=== PATIENT | male | born 1950 | race Caucasian/White ===

== ENCOUNTER 2017-04-26 13:20 | Inpatient (IN) | payer OTHER ==
[~2017-04-26] VITALS: Ht 167.6 cm; Wt 68.9 kg
[~2017-04-26 13:20] MED LIST: ATENOLOL50 MG PO; HYDRALAZINE HYD10 M1 PO; LEVOTHYROXINE0.05 M2 PO; NIFEDIPINE60 MG PO; PHOS PO; SODIUM BICARBO650 MG PO; ZES10 PO
[2017-04-26] MEDS ORDERED: PRA40 PO (13:36)
[2017-04-26 14:04] LABS: BASOPHIL % 0.4 % (0-2); PLATELET COUNT 224 x10^3mcL (130-400)
[2017-04-26 14:05] LABS: RED CELL DISTRIBUTION WIDTH 14.8 % (11.5-14.5)
[2017-04-26 14:27] LABS: FREE T4 1.13 ng/dL (0.76-1.46); FREE THYROXINE INDEX 3.4 ug/dL (1.4-4.5); T4(THYROXINE) 9.5 ug/dL (4.7-13.3)
[2017-04-26 14:35] LABS: ALBUMIN 3.6 g/dL (3.4-5.0); BILIRUBIN TOTAL 0.63 mg/dL (0.20-1.00); CALCIUM 9.3 mg/dL (8.5-10.1); CARBON DIOXIDE 22.9 mmol/L (21-32); CHOLESTEROL/HDL RATIO 2.9; TOTAL PROTEIN, SERUM 6.8 g/dL (6.4-8.2)
[2017-04-26 14:45] LABS: CREATININE SERUM 11.8 mg/dL (0.7-1.3); POTASSIUM SERUM 6.9 mmol/L (3.5-5.1)
[2017-04-26 14:51] LABS: T3 TOTAL 0.79 ng/mL
[2017-04-26 16:01] VITALS: BP 175/82
[2017-04-26 17:11] LABS: PHOSPHOROUS 4.6 mg/dL (2.5-4.9)
[2017-04-26 19:25] VITALS: BP 165/87
[2017-04-26 21:56] VITALS: BP 148/81
[2017-04-26 22:00] VITALS: BP 165/87
[2017-04-26 22:30] VITALS: BP 127/77
[2017-04-26 22:57] VITALS: BP 154/78
[2017-04-27 05:52] VITALS: BP 143/73
[2017-04-27 07:04] LABS: BASOPHIL % 0.7 % (0-2); PLATELET COUNT 209 x10^3mcL (130-400)
[2017-04-27 07:05] LABS: RED CELL DISTRIBUTION WIDTH 14.6 % (11.5-14.5)
[2017-04-27 07:13] LABS: CALCIUM 8.7 mg/dL (8.5-10.1); CARBON DIOXIDE 33.2 mmol/L (21-32); MAGNESIUM 2.1 mg/dL (1.8-2.4); PHOSPHOROUS 5.6 mg/dL (2.5-4.9); POTASSIUM SERUM 4.6 mmol/L (3.5-5.1)
[2017-04-27 07:26] VITALS: BP 136/67
[2017-04-27 07:28] LABS: CREATININE SERUM 7.3 mg/dL (0.7-1.3)
[2017-04-27 13:25] VITALS: BP 124/82
[2017-04-27 17:46] LABS: UA SPECIFIC GRAVITY 1.015 (1.005-1.035); microscopic required? YES; urine erythrocyte 1+ (NEGATIVE)
[2017-04-27 18:16] LABS: AMPHETAMINE QUAL UR NONE DETECTED (NEG <=1000)
[2017-04-27 18:30] VITALS: BP 157/79
[2017-04-27 20:45] VITALS: BP 149/82
[2017-04-27 21:53] VITALS: BP 134/69
[2017-04-28 00:47] VITALS: BP 117/63
[2017-04-28 05:37] VITALS: BP 134/64
[2017-04-28 06:21] LABS: PLATELET COUNT 209 x10^3mcL (130-400); RED CELL DISTRIBUTION WIDTH 14.5 % (11.5-14.5)
[2017-04-28 06:33] LABS: CALCIUM 8.8 mg/dL (8.5-10.1); CARBON DIOXIDE 29.4 mmol/L (21-32); PHOSPHOROUS 6.2 mg/dL (2.5-4.9); POTASSIUM SERUM 4.3 mmol/L (3.5-5.1)
[2017-04-28 06:55] LABS: CREATININE SERUM 6.5 mg/dL (0.7-1.3)
[2017-04-28 10:25] VITALS: BP 133/68
[2017-04-28] MEDS ORDERED: MECLIZINE HYDRO25 M1 PO (11:20)
[2017-04-28] MEDS ORDERED: HYDRALAZINE HY100 MG (11:28)
[2017-04-28 11:30] VITALS: BP 133/68
== END 2017-04-28 13:50 | disposition home or self-care (01) | DRG 70 ==
LOC: ED 13:20 → DU 14:57
PROVIDERS: Family Medicine; Internal Medicine Nephrology; Specialist; ADMIT Family Medicine
DX: G93.41 Metabolic encephalopathy (principal); N18.6 End stage renal disease; N17.0 Acute kidney failure with tubular necrosis; I50.43 Acute on chronic combined systolic (congestive) and diastolic (congestive) heart failure; I13.2 Hypertensive heart and chronic kidney disease with heart failure and with stage 5 chronic kidney disease, or end stage renal disease; E78.5 Hyperlipidemia, unspecified; E87.5 Hyperkalemia; E83.41 Hypermagnesemia; D53.9 Nutritional anemia, unspecified; E03.9 Hypothyroidism, unspecified; E83.39 Other disorders of phosphorus metabolism; Z99.2 Dependence on renal dialysis; Z68.24 Body mass index [BMI] 24.0-24.9, adult; Z87.891 Personal history of nicotine dependence; Z91.15 Patient's noncompliance with renal dialysis
CPT/HCPCS: 36600; 83880; 84439; A4719; J1815; J3490; J7030; Q0092

== ENCOUNTER 2019-03-06 23:47 | Emergency (ER) | payer OTHER ==
[~2019-03-06] VITALS: Ht 170.2 cm; Wt 67.2 kg
[~2019-03-06 23:47] MED LIST changes: +HYDRALAZINE HY100 MG; +MECLIZINE HYDRO25 M1 PO; +PRA40 PO
[2019-03-07 01:14] VITALS: BP 156/77
== END 2019-03-07 01:14 | disposition home or self-care (01) ==
LOC: ED 23:47
DX: S90.464A Insect bite (nonvenomous), right lesser toe(s), initial encounter (principal); S70.361A Insect bite (nonvenomous), right thigh, initial encounter; L29.9 Pruritus, unspecified; I10 Essential (primary) hypertension; Z88.2 Allergy status to sulfonamides; Z88.8 Allergy status to other drugs, medicaments and biological substances; Z98.890 Other specified postprocedural states; W57.XXXA Bitten or stung by nonvenomous insect and other nonvenomous arthropods, initial encounter; Y93.89 Activity, other specified; Y92.89 Other specified places as the place of occurrence of the external cause; Y99.8 Other external cause status
CPT/HCPCS: J1200